=== PATIENT | male | born 1975 | race Caucasian/White ===

== ENCOUNTER 2017-04-29 14:51 | Emergency (ER) | payer SELFPAY ==
[~2017-04-29] VITALS: Ht 180.3 cm; Wt 77.1 kg
[~2017-04-29 14:51] MED LIST: KEPPRA500 MG PO; SUBUTEX PO
== END 2017-04-29 21:15 | disposition short-term general hospital (02) ==
LOC: ER 14:51
DX: Z76.0 Encounter for issue of repeat prescription (principal)

== ENCOUNTER 2017-09-30 13:12 | Emergency (ER) | payer OTHER ==
[~2017-09-30] VITALS: Ht 180.3 cm; Wt 77.1 kg
--- OUTSIDE RECORDS SUMMARY | 2017-09-30 13:15 | XMS REPORT | Clinical Summary ---
Author Author [facility] Organization [facility] Address Unknown Phone Unavailable Care Team Providers Care Councillor [employer] Name Role Phone Aydin Nunez MD PCP Allergies No Known Allergies Current Medications Prescription Sig. Disp. Refills Start End Date Status Date levETIRAcetam (KEPPRA) Take 1 tablet by mouth 2 180 tablet 1 07/12/19 Active 500 mg tabletIndications: times daily. 18 History of seizure gabapentin (NEURONTIN) Take 1 tablet by mouth 2 60 tablet 0 07/12/19 Active 800 mg tabletIndications: times daily. 18 History of chronic back pain albuterol (VENTOLIN Inhale 2 Puffs by mouth 4 20.1 g 1 07/12/19 Active HFA,PROVENTIL HFA,PROAIR times daily as needed for 18 HFA) 90 mcg/actuation Wheezing. inhalerIndications: Smoker ibuprofen (MOTRIN) 800 mg Take 1 tablet by mouth 60 tablet 0 08/05/19 Active tabletIndications: every 8 hours as needed 18 Myalgia for Pain. mirtazapine (REMERON) 15 Take 1 tablet by mouth at 30 tablet 1 Active mg tabletIndications: bedtime nightly. 18 Moderate episode of recurrent major depressive disorder, Insomnia, unspecified type, Anxiety levETIRAcetam (KEPPRA) Take 500 mg by mouth 2 07/12/19 Discontin 500 mg tablet times daily. 18 ued Active Problems Problem Noted Date Misuse of drugs - gabapentin 08/04/2017 Patient requests medication, not given - gabapentin 08/04/2017 Smoker - 0.5pack/per day 07/11/2017 History of chronic back pain 07/11/2017 Marijuana abuse 07/11/2017 Adjustment insomnia 07/11/2017 Psychosocial stressors 07/11/2017 Seizure - started 04/2016 , MRI temporal sclerosis 05/06/2016 Encounters Date Type Specialty Care Team Description 09/26/2017 Pharmacy Visit 09/12/2017 Office Visit Psychiatry Vilma Bedoya MD Moderate episode of recurrent major depressive disorder (Primary Dx); Insomnia, unspecified type; Anxiety 09/12/2017 Pharmacy Visit 08/24/2017 Office Visit Psychology Aydin Nunez MD Anxiety and depression SalvatoreAndrea coolne (Primary Dx); Sleep disturbance 08/07/2017 Pharmacy Visit 08/04/2017 Office Visit Family Practice Aydin Nunez MD Myalgia ( Primary Dx); Seizure - MRI temporal sclerosis; Pain in joint, multiple sites - stiffness hands, knees, legs ; Misuse of drugs - gabapentin ; Patient requests medication, not given 08/04/2017 Pharmacy Visit 07/18/2017 Orders Only Family Practice Aydin Nunez MD History of seizure - x 1yr 201607/14/2017 Ancillary Radiology History of seizure - x Procedure 1yr 201607/12/2017 E-Consult Neurology Michael Alvarado MD 07/11/2017 Ancillary Radiology Aydin Nunez MD History of chronic back Procedure pain 07/11/2017 Office Visit Family Practice Phoenix Alejandra MD History of seizure - x Aydin Nunez MD 2016 (Primary Dx); Preventative health care; Body aches; History of chronic back pain; Marijuana abuse; Adjustment insomnia; Psychosocial stressors; Smoker 07/11/2017 Procedure Pass Radiology 07/11/2017 Orders Only Family Practice Aydin Nunez MD Adjustment insomnia; Psychosocial stressors 07/11/2017 Pharmacy Visit after 09/29/2016 Family History Medical History Relation Name Comments Other Sister killed Relation Name Status Comments Father Maternal Grandfather Maternal Grandmother Mother Alive Paternal Grandfather Paternal Grandmother Sister Social History Tobacco Use Types Packs/Day Years Used Date Current Every Day Smoker Cigarettes 0.5 Started: 07/12/1979 Smokeless Tobacco: Never Used Tobacco Cessation: Ready to Quit: No; Counseling Given: Yes Alcohol Use Drinks/Week oz/Week Comments No former Sex Assigned at Date Recorded Not on file Last Filed Vital Signs Vital Sign Reading Time Taken Blood Pressure 132/87 09/12/2017 10:05 AM CDT Pulse 58 09/12/2017 10:05 AM CDT Temperature 36.7 C (98 F) 09/12/2017 10:05 AM CDT Respiratory Rate 18 09/12/2017 10:05 AM CDT Oxygen Saturation 100% 07/11/2017 8:38 AM CDT Inhaled Oxygen - - Concentration Weight 75.8 kg (167 lb 3.2 oz) 09/12/2017 10:05 AM CDT Height 175.3 cm (5' 9") 09/12/2017 10:05 AM CDT Body Mass Index 24.69 09/12/2017 10:05 AM CDT Plan of Treatment Date Type Specialty Care Team Description 10/09/2017 Office Visit Family Practice Derek Corrigan MD wants to change pcp- Department of Family wants Gabapentin and Practice - [facility] wants to know why it is [address] [place] [address] when it is non narcotic [phone] 10/16/2017 Office Visit Psychiatry Ryan Sousa MD 1 month f/u per dr bedoya [address] - slip [address] [place] [address] Results * LUPUS ANTICOAGULANT PANEL (09/12/2017 11:22 AM) Component Value Ref Range DRVV Screen Ratio 0.88 0.00 - 1.20 Ratio PTT-LA 35.6 26 - 40 Sec LA Interpretation There is no evidence of lupus anticoagulant by two screening tests (DRVV and PTT-LA). Unless there is a clinical suspicion, no further testing for LA is indicated Specimen Performing Laboratory Blood MISYS * CCP IGG ABS (09/12/2017 11:22 AM) Component Value Ref Range CCP Abs IgG/IgA 5 Reference range: 0 to 19 Unit: units (note) Negative <20 Weak positive 20 - 39 Moderate positive 40 - 59 Strong positive >59 Specimen Performing Laboratory Blood MIS[facility] * ALDOLASE (09/12/2017 11:22 AM) Component Value Ref Range Aldolase 4.7 Reference range: 3.3 to 10.3 Unit: U/L Specimen Performing Laboratory Blood MISYS * CRP, HIGH SENS (09/12/2017 11:22 AM) Component Value Ref Range CRP, high sens 6.721 (H) <1.0 mg/dL Specimen Performing Laboratory Blood MISYS * SED RATE (09/12/2017 11:22 AM) Component Value Ref Range Sed Rate 8 <15 mm/Hr Specimen Performing Laboratory Blood MISYS * RA FACTOR (09/12/2017 11:22 AM) Component Value Ref Range RA Factor <10 <14 IU/mL Specimen Performing Laboratory Blood MISYS * ANTI DSDNA BY CRITHIDIA (09/12/2017 11:22 AM) Component Value Ref Range Anti dsDNA Negative NEG Titer Specimen Performing Laboratory Blood MISYS * MARTHA (09/12/2017 11:22 AM) Component Value Ref Range MARTHA Screen Negative NEG Specimen Performing Laboratory Blood MISYS * MRI BRAIN W AND W/O CONTRAST (07/14/2017 4:28 PM) Specimen Performing Laboratory SMS Impressions IMPRESSION: Findings as described above are 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 If the report is "FINALIZED" it indicates that the attending/staff radiologist has reviewed the images and agrees with the resident's interpretation. Dictated By: Ras Murphy MD, 07/25/2017 4:12 PM I have reviewed the study and agree with the findings in this report. Signed By: Allyson Dorsey MD, 07/26/2017 2:26 PM Narrative Exam: Brain MRI with and without contrast History: new onset seizures x 1 yr Comparison studies: None Technique: Pre Contrast: Sagittal and axial T2, axial T1 and T2 flair, GRE, DWI and ADC, Coronal T2 FLAIR and T2 FSE through the temporal lobes. Post Contrast: Sagittal, axial and coronal T1. Contrast: 16 cc of Dotarem Complications: None FINDINGS: Scalp: No abnormalities. Bone marrow:No signal abnormalities. Brain sulci: Appropriate for patient's age. Ventricles:Normal in size and configuration. No hydrocephalus. Extra-axial spaces: No masses or fluid collections. Parenchyma: No masses, hemorrhage, acute cortical vascular insults. Hippocampi:Normal in size and signal on the left. There is increased signal of the right hippocampal head, body and tail with loss of normal architecture. There is no associated volume loss. Columns of the fornices:Normal in size and signal Mammillary bodies:Intact Calcification/iron: No abnormal deposits. Hippocampi: No atrophy or gliosis. Vessels: Normal flow voids in major arteries and veins. Migrational anomalies: None. Enhancement: No abnormal enhancement. Vessels: Normal flow voids in major arteries and veins. Sellar/Suprasellar region:No abnormalities. Craniocervical junction: No abnormalities. Incidental findings: None. Procedure Note Interface, Rad/Mammog In - 07/26/2017 2:31 PM CDT Exam: Brain MRI with and without contrast History: new onset seizures x 1 yr Comparison studies: None Technique: Pre Contrast: Sagittal and axial T2, axial T1 and T2 flair, GRE, DWI and ADC, Coronal T2 FLAIR and T2 FSE through the temporal lobes. Post Contrast: Sagittal, axial and coronal T1. Contrast: 16 cc of Dotarem Complications: None FINDINGS: Scalp: No abnormalities. Bone marrow: No signal abnormalities. Brain sulci: Appropriate for patient's age. Ventricles: Normal in size and configuration. No hydrocephalus. Extra-axial spaces: No masses or fluid collections. Parenchyma: No masses, hemorrhage, acute cortical vascular insults. Hippocampi: Normal in size and signal on the left. There is increased signal of the right hippocampal head, body and tail with loss of normal architecture. There is no associated volume loss. Columns of the fornices:Normal in size and signal Mammillary bodies:Intact Calcification/iron: No abnormal deposits. Hippocampi: No atrophy or gliosis. Vessels: Normal flow voids in major arteries and veins. Migrational anomalies: None. Enhancement: No abnormal enhancement. Vessels: Normal flow voids in major arteries and veins. Sellar/Suprasellar region: No abnormalities. Craniocervical junction: No abnormalities. Incidental findings: None. 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 If the report is "FINALIZED" it indicates that the attending/staff radiologist has reviewed the images and agrees with the resident's interpretation. Dictated By: Ras Murphy MD, 07/25/2017 4:12 PM I have reviewed the study and agree with the findings in this report. Signed By: Allyson Dorsey MD, 07/26/2017 2:26 PM * XRAY SPINE L-SACRAL AP- LAT- OBL- SPOT (07/11/2017 10:01 AM) Specimen Performing Laboratory SMS Impressions IMPRESSION: No acute radiographic abnormality. Dictated By: Giuseppe Sommer MD, 07/11/2017 10:32 AM I have reviewed the study and agree with the findings in this report. Signed By: Mando Harding DO, 07/11/2017 10:59 AM Narrative Lumbar Spine Radiographs - 5 view(s) HISTORY:lower back pain COMPARISON: None DISCUSSION: Bone: Osseous structures are partially obscured by stool and bowel gas. Five nonrib-bearing lumbar vertebral bodies. Normal alignment. No displaced fracture or compression deformity. Discs: The disc spaces are well maintained. Joints: The facet joints spaces are unremarkable. Soft tissues: The soft tissues appear unremarkable. Procedure Note Interface, Rad/Mammog In - 07/11/2017 11:04 AM CDT Lumbar Spine Radiographs - 5 view(s) HISTORY: lower back pain COMPARISON: None DISCUSSION: Bone: Osseous structures are partially obscured by stool and bowel gas. Five nonrib-bearing lumbar vertebral bodies. Normal alignment. No displaced fracture or compression deformity. Discs: The disc spaces are well maintained. Joints: The facet joints spaces are unremarkable. Soft tissues: The soft tissues appear unremarkable. IMPRESSION IMPRESSION: No acute radiographic abnormality. Dictated By: Giuseppe Sommer MD, 07/11/2017 10:32 AM I have reviewed the study and agree with the findings in this report. Signed By: Mando Harding DO, 07/11/2017 10:59 AM * URINE DRUG SCREEN (07/11/2017 9:48 AM) Component Value Ref Range Amphetamine Negative NEG Comment: Calibrated Standard: D-Methamphetamine Positive if urine level >jk=2927 ng/mL Test performed on [id number] using EMIT Immunoassay Barbiturate Negative NEG Comment: Calibrated Standard: Secobarbital Positive if urine level is >if=146 ng/mL Test performed on [id number] using EMIT Immunoassay Benzodiazepine Negative NEG Comment: Calibrated Standard: Lormethazepam Positive if urine level is >tn=644 ng/mL Test performed on [id number] using EMIT Immunoassay Cannabinoid Positive (A) NEG Comment: Calibrated Standard: 11 nor-delta(9)-THC carboxylic a Positive if urine level >or=50 Test performed on [id number] using EMIT Immunoassay Cocaine Negative NEG Comment: Calibrated Standard: Benzoylecgonine Positive if urine level >qo=893 Test performed on [id number] using EMIT Immunoassay Opiate, Ur Negative NEG Comment: Calibrated Standard: Morphine Positive if urine level >wd=656 Test performed on [id number] using EMIT Immunoassay PCP Negative NEG Comment: Calibrated Standard: Phencyclidine Positive if urine level >or=25 Test performed on [id number] using EMIT Immunoassay Urine Toxicology Screen results are to be used only for Medical purposes. Specimen Performing Laboratory Urine MISYS * VIT D, 25-HYDROXY (07/11/2017 9:47 AM) Component Value Ref Range Vit D, 25-Hydroxy 38.7 30 - 100 ng/mL Comment: Vitamin D deficiency has been defined by the [place] of [employer] and Endocrine Society guideline as a level of serum 25-OH Vitamin D less than 20 ng/mL. The Endocrine Society further defines Vitamin D insufficiency as a level between 21 and 29 ng/mL and sufficiency as a level between 30 and 100 ng/mL. Specimen Performing Laboratory MISYS * HIV-1/HIV-2 ROUTINE SCREENING (07/11/2017 9:47 AM) Component Value Ref Range HIV-1/HIV-2 Negative NEG Specimen Performing Laboratory MISYS * HEMOGLOBIN A1C (07/11/2017 9:47 AM) Component Value Ref Range Hemoglobin A1c 6.4 (H) 4.3 - 6.1 % Est Average Gluc 137.0 mg/dL Specimen Performing Laboratory Blood MISYS * COMPREHENSIVE METABOLIC PANEL(DBIL NOT INCLUDED) (07/11/2017 9:47 AM) Component Value Ref Range Albumin 4.1 (L) 4.2 - 5.5 g/dL Calcium 10.2 8.6 - 10.3 mg/dL CO2 27 21 - 31 mmol/L Chloride 107 98 - 107 mmol/L Creatinine 0.70 0.7 - 1.3 mg/dL Glucose 88 70 - 110 mg/dL Alk Phos 75 34 - 104 U/L Potassium 5.0 3.5 - 5.1 mmol/L Sodium 141 136 - 145 mmol/L ALT 27 7 - 52 U/L AST 22 13 - 39 U/L Urea Nitrogen 14 7 - 25 mg/dL T Bilirubin 0.2 0.2 - 1.2 mg/dL T Protein 6.8 6.0 - 8.3 g/dL GFR, Estimated >60 mL/min/1.73 m2 GFR, Estim, Afr-Am >60 mL/min/1.73 m2 Anion Gap 7 Specimen Performing Laboratory Blood MISYS * TSH (07/11/2017 9:47 AM) Component Value Ref Range TSH 2.24 0.45 - 5.33 uIU/mL Specimen Performing Laboratory Blood MISYS * FREE T4 (07/11/2017 9:47 AM) Component Value Ref Range Free T4 1.02 0.61 - 1.12 ng/dl Specimen Performing Laboratory Blood MISYS * LIPID PROFILE (07/11/2017 9:47 AM) Component Value Ref Range Cholesterol 175 mg/dL Comment: REFERENCE RANGE: Desirable: <200 mg/dL Borderline: 200-240 mg/dL High Risk: >240 mg/dL Triglyceride 54 <150 mg/dL Comment: REFERENCE RANGE: Normal: <150 mg/dL Borderline High: 150-199 mg/dL High: 200-499 mg/dL Very High: >sc=404 mg/dL HDL 52 mg/dL Comment: Increased CHD risk: <40 mg/dL Decreased CHD risk: >60 mg/dL LDL 112 mg/dL Comment: REFERENCE RANGE: Optimal: <100 mg/dL Near Optimal: 100-129 mg/dL Borderline High: 130-159 mg/dL High: 160-189 mg/dL Very High: >hf=137 mg/dL Specimen Performing Laboratory Blood MISYS * HEPATITIS PANEL (07/11/2017 9:47 AM) Component Value Ref Range HCV IgG Negative NEG HBsAg Negative NEG HAV, IgM Negative NEG HBcAb, IgM Negative NEG Specimen Performing Laboratory Blood MISYS * CK, TOTAL (07/11/2017 9:47 AM) Component Value Ref Range CK, Total 63 30 - 200 U/L Specimen Performing Laboratory Blood MISYS * CBC/DIFF (07/11/2017 9:47 AM) Component Value Ref Range WBC 9.4 4.5 - 12.0 K/uL RBC 4.25 (L) 4.60 - 6.20 M/uL Hemoglobin 13.1 (L) 14.0 - 18.0 g/dL Hematocrit 40.5 40.0 - 54.0 % MCV 95 (H) 82 - 92 fL MCH 30.8 27.0 - 31.0 pg MCHC 32.3 32.0 - 36.0 g/dL RDW 46.1 (H) 35.1 - 43.9 fL Platelet 238 150 - 400 K/uL Mean Platelet Volume 11.8 9.4 - 12.4 fL Percent NRBC 0.0 Absolute NRBC 0.00 Neutrophil 61.7 34.0 - 67.9 % Lymphocyte 25.4 21.8 - 50.0 % Monocyte 8.7 5.3 - 12.0 % Eosinophil 3.5 0.8 - 5.0 % Basophil 0.4 0.2 - 1.2 % Pct Immat Gran 0.3 0.0 - 0.5 Neutrophil, Abs 5.80 (H) 1.78 - 5.36 K/uL Lymphocyte, Abs 2.39 1.32 - 3.57 K/uL Monocyte, Abs 0.82 0.30 - 0.82 K/uL Eosinophil, Abs 0.33 0.04 - 0.54 K/uL Basophil, Abs 0.04 0.01 - 0.08 K/uL Absol Immat Gran 0.03 0.00 - 0.03 K/uL Specimen Performing Laboratory Blood MISYS after 09/29/2016
--- OUTSIDE RECORDS SUMMARY | 2017-09-30 13:15 | XMS REPORT ---
[facility] Address Unknown Phone Unavailable Care Team Providers Care Band Tacker Name Role Phone Unavailable Unavailable Problems This patient has no known problems. Allergies, Adverse Reactions, Alerts This patient has no known allergies or adverse reactions. Medications This patient has no known medications. Encounters Start Date/Time End Date/Time Encounter Type Admission Type Attending [facility] Care Department Encounter ID 2018-07-27 00:00:00 2018-07-27 00:00:00 Outpatient [facility] [id number] 2017-10-17 00:00:00 2017-10-17 00:00:00 Outpatient [facility] [id number] 2017-10-16 00:00:00 2017-10-16 00:00:00 Outpatient [facility] [id number] 2017-10-09 00:00:00 2017-10-09 00:00:00 Outpatient [facility] [id number] 2017-09-12 11:25:06 2017-09-12 11:25:06 Outpatient [facility] [id number] 2017-09-12 10:00:01 2017-09-12 10:00:01 Outpatient [facility] [id number] 2017-08-24 08:50:23 2017-08-24 08:50:23 Outpatient [facility] [id number] 2017-08-07 00:00:00 2017-08-07 00:00:00 Outpatient [facility] [id number] 2017-08-07 00:00:00 2017-08-07 00:00:00 Outpatient [facility] [id number] 2017-08-07 00:00:00 2017-08-07 00:00:00 Outpatient [facility] [id number] 2017-08-04 08:27:48 2017-08-04 08:27:48 Outpatient [facility] [id number] 2017-08-04 00:00:00 2017-08-04 00:00:00 Outpatient [facility] [id number] 2017-07-26 00:00:00 2017-07-26 00:00:00 Outpatient [facility] [id number] 2017-07-24 00:00:00 2017-07-24 00:00:00 Outpatient [facility] [id number] 2017-07-14 15:10:51 2017-07-14 15:10:51 Outpatient [facility] [id number] 2017-07-11 09:56:03 2017-07-11 09:56:03 Outpatient [facility] [id number] 2017-07-11 09:52:23 2017-07-11 09:52:23 Outpatient [facility] [id number] 2017-07-11 08:38:34 2017-07-11 08:38:34 Outpatient [facility] [id number]
[2017-09-30 13:32] LABS: BASOPHILS % 0.3 % (0.0-1.0); EOSINOPHILS # (AUTO) 0.1 (0.0-0.4); EOSINOPHILS % 0.8 % (0.0-6.0); HEMATOCRIT 35.9 % (38.2-49.6); LYMPHOCYTES # (AUTO) 2.1 (1.0-3.2); LYMPHOCYTES % 17.8 % (18.0-39.1); MEAN CORPUSCULAR HEMOGLOBIN 31.6 pg (28-32); MEAN CORPUSCULAR HGB CONC 33.4 g/dL (31-35); MEAN CORPUSCULAR VOLUME 94.5 fL (81-99); MONOCYTES # (AUTO) 0.8 (0.2-0.8); MONOCYTES % 6.7 % (4.4-11.3); NEUTROPHILS # (AUTO) 8.6 (2.1-6.9); NEUTROPHILS % 74.1 % (38.7-80.0); PLATELET COUNT 215 x10e3/uL (140-360); RED CELL DISTRIBUTION WIDTH 12.7 % (11.7-14.4)
[2017-09-30 13:40] LABS: BILIRUBIN,URINE NEGATIVE (NEGATIVE); CLARITY,URINE CLEAR (CLEAR); COLOR,URINE YELLOW (YELLOW); KETONES,URINE NEGATIVE (NEGATIVE); LEUKOCYTE ESTERASE ,URINE NEGATIVE (NEGATIVE); NITRITE,URINE NEGATIVE (NEGATIVE); PROTEIN,URINE DIPSTICK NEGATIVE (NEGATIVE); URINE UROBILINOGEN 0.2 mg/dL (0.2 - 1)
[2017-09-30 13:42] LABS: AMPHETAMINES SCREEN,URINE NEGATIVE (NEGATIVE); BENZODIAZEPINES SCREEN,URINE NEGATIVE (NEGATIVE); PHENCYCLIDINE SCREEN,URINE NEGATIVE (NEGATIVE)
[2017-09-30 13:46] LABS: BACTERIA,URINE FEW /HPF; EPITHELIAL CELLS,URINE FEW /LPF; RBC,URINE 0-5 /HPF (0-5); WBC,URINE (MAN) 0-5 /HPF (0-5)
[2017-09-30 13:51] LABS: ALANINE AMINOTRANSFERASE 83 IU/L (0-55); ALBUMIN 4.2 g/dL (3.5-5.0); ALBUMIN/GLOBULIN RATIO 1.3 (0.8-2.0); ALKALINE PHOSPHATASE 100 IU/L (40-150); ANION GAP 12.4 mmol/L (8-16); BLOOD UREA NITROGEN 17 mg/dL (7-26); BUN/CREATININE RATIO 20 (6-25); CALCIUM 9.6 mg/dL (8.4-10.2); CARBON DIOXIDE 27 mmol/L (22-29); CHLORIDE 107 mmol/L (98-107); CREATINE KINASE 124 IU/L (30-200); CREATININE, SERUM 0.85 mg/dL (0.72-1.25); EST GLOMERULAR FILTRATION RATE > 60 ML/MIN (60-); GLUCOSE 103 mg/dL (74-118); MAGNESIUM 1.9 MG/DL (1.3-2.1); POTASSIUM 4.4 mmol/L (3.5-5.1); SODIUM 142 mmol/L (136-145)
[2017-09-30] MEDS ORDERED: LEVETIRACETAM 500 MG TAB PO ONE (14:00)
[2017-09-30] MEDS ORDERED: LEVETIRACETAM 500 MG TAB PO SCH (17:00)
== END 2017-09-30 14:40 | disposition home or self-care (01) ==
LOC: ER 13:12
DX: G40.409 Other generalized epilepsy and epileptic syndromes, not intractable, without status epilepticus (principal); M54.9 Dorsalgia, unspecified; G89.29 Other chronic pain
CPT/HCPCS: 36415; 80053; 80307; 81001; 82550; 83735; 85025; 99283

== ENCOUNTER 2018-12-27 13:36 | Emergency (ER) | payer BC, OTHER ==
[~2018-12-27] VITALS: Ht 180.3 cm; Wt 77.1 kg
[2018-12-27] MEDS ORDERED: SODIUM CHLORIDE 0.9% 1000ML 1,000 ML IV SCH (13:45)
[2018-12-27 14:07] LABS: BASOPHILS % 0.2 % (0.0-1.0); EOSINOPHILS # (AUTO) 0.1 (0.0-0.4); EOSINOPHILS % 0.7 % (0.0-6.0); HEMATOCRIT 36.4 % (38.2-49.6); HEMOGLOBIN 12.2 g/dL (14.0-18.0); LYMPHOCYTES # (AUTO) 1.9 (1.0-3.2); LYMPHOCYTES % 11.2 % (18.0-39.1); MEAN CORPUSCULAR HEMOGLOBIN 31.9 pg (28-32); MEAN CORPUSCULAR HGB CONC 33.5 g/dL (31-35); MONOCYTES # (AUTO) 1.5 (0.2-0.8); MONOCYTES % 8.7 % (4.4-11.3); NEUTROPHILS # (AUTO) 13.5 (2.1-6.9); NEUTROPHILS % 78.7 % (38.7-80.0); PLATELET COUNT 246 x10e3/uL (140-360); RED BLOOD COUNT 3.83 x10e6/uL (4.3-5.7); RED CELL DISTRIBUTION WIDTH 12.7 % (11.7-14.4)
[2018-12-27 14:22] LABS: ANION GAP 12.3 mmol/L (8-16); BLOOD UREA NITROGEN 18 mg/dL (7-26); BUN/CREATININE RATIO 18 (6-25); CALCIUM 9.4 mg/dL (8.4-10.2); CARBON DIOXIDE 27 mmol/L (22-29); CHLORIDE 106 mmol/L (98-107); CREATININE, SERUM 1.01 mg/dL (0.72-1.25); EST GLOMERULAR FILTRATION RATE > 60 ML/MIN (60-); GLUCOSE 124 mg/dL (74-118); POTASSIUM 4.3 mmol/L (3.5-5.1); SODIUM 141 mmol/L (136-145)
--- NOTE | 2018-12-27 15:20 | Diagnostic Imaging Report ---
EXAMINATION: CHEST SINGLE (PORTABLE) INDICATION: Dizziness COMPARISON: None FINDINGS: LINES/TUBES:EKG leads overlie the chest. LUNGS:The lungs are well-inflated. No focal consolidation or pulmonary edema. PLEURA:No pleural effusion or pneumothorax. MEDIASTINUM:The cardiomediastinal silhouette appears normal in size and shape. BONES/SOFT TISSUES:No acute osseous injury. ABDOMEN:No free air under the diaphragm. IMPRESSION: No focal pneumonia or pulmonary edema. Signed by: Randi Oswald MD on 12/27/2018 3:17 PM
--- NOTE | 2018-12-27 16:10 | NUR ---
PT BECOMING AGGRESSIVE TOWARDS STAFF, CUSSING STATING "Y'ALL HAVEN'T DONE SHIT FOR ME, WHY DO THESE FUCKING WIRES EVEN HAVE TO BE ATTACHED TO ME", ATTEMPTED TO REASSURE PT AND EXPLAIN THAT CUSTOMER ACQUISITION MANAGER IS IN PLACE TO EVALUATE HEMODYNAMIC STABILITY, PT STATES "WELL I DON'T NEED THIS SHIT, Y'ALL JUST LEFT ME IN THIS ROOM". INFORMED PT THAT CARE WAS BEING PROVIDED BEST POSSIBLE, INFORMED GIANCARLO MIGUEL AND CHARGE NURSE GERMÁN GUTIÉRREZ.
--- NOTE | 2018-12-27 16:30 | NUR ---
PT PULLED OUT IV, APPLIED GAUZE TO SITE AND WRAPPED IN COBAN, INFORMED GIANCARLO MIGUEL.
[2018-12-27 16:40] LABS: BILIRUBIN,URINE NEGATIVE (NEGATIVE); CLARITY,URINE SL CLOUDY (CLEAR); COLOR,URINE YELLOW (YELLOW); KETONES,URINE NEGATIVE (NEGATIVE); LEUKOCYTE ESTERASE ,URINE NEGATIVE (NEGATIVE); NITRITE,URINE NEGATIVE (NEGATIVE); PROTEIN,URINE DIPSTICK NEGATIVE (NEGATIVE); URINE UROBILINOGEN 0.2 mg/dL (0.2 - 1)
--- NOTE | 2018-12-27 16:40 | NUR ---
GIANCARLO MIGUEL CURRENTLY SPEAKING WITH OUTSIDE OF ROOM.
[2018-12-27 16:44] LABS: AMPHETAMINES SCREEN,URINE NEGATIVE (NEGATIVE); BENZODIAZEPINES SCREEN,URINE NEGATIVE (NEGATIVE); PHENCYCLIDINE SCREEN,URINE NEGATIVE (NEGATIVE)
[2018-12-27 16:56] LABS: BACTERIA,URINE RARE /HPF; EPITHELIAL CELLS,URINE FEW /LPF; MUCUS,URINE MODERATE (RARE)
--- NOTE | 2018-12-27 17:08 | NUR ---
DR. EDEN AT BEDSIDE SPEAKING WITH PATIENT AND AT THIS TIME.
--- NOTE | 2018-12-27 17:40 | NUR ---
PROVIDED D/C PAPERWORK FOR PATIENT, PT REFUSING TO SIGN D/C PAPERWORK, REQUESTING MEDICATIONS FOR SHAKINESS AND ANXIETY, INFORMED GIANCARLO MIGUEL BUT NO ORDERS RECEIVED AT THIS TIME; MADDEN SECURITY TO REQUEST PT TO BE ESCORTED OUT HE IS BEING AGGRESSIVE AND COMBATIVE TOWARDS STAFF AND HITTING TRASH CAN IN ROOM.
[2018-12-27 17:44] VITALS: BP 138/72
--- NOTE | 2018-12-27 17:44 | NUR ---
SECURITY AT BEDSIDE AT THIS TIME, ASSITED WITH ESCORT OUT OF ED.
== END 2018-12-27 17:46 | disposition home or self-care (01) ==
LOC: ER 13:36
DX: T67.5XXA Heat exhaustion, unspecified, initial encounter (principal); E86.0 Dehydration; M79.10 Myalgia, unspecified site; F12.10 Cannabis abuse, uncomplicated; F11.10 Opioid abuse, uncomplicated
CPT/HCPCS: 36415; 71045; 80048; 80307; 81001; 82550; 83735; 85025; 93005; 99284; J7030